=== PATIENT | female | born 1990 | race Hispanic/Latino ===

== ENCOUNTER 2017-06-30 10:19 | Emergency (ER) | payer BC, SELFPAY | END 2017-06-30 12:00 | disposition home or self-care (01) | LOC: ERS 10:19 | DX: L25.9 Unspecified contact dermatitis, unspecified cause (principal) | CPT/HCPCS: 99282 ==

== ENCOUNTER 2017-08-10 10:21 | Emergency (ER) | payer SELFPAY | END 2017-08-10 11:30 | disposition home or self-care (01) | LOC: ERS 10:21 | DX: J02.9 Acute pharyngitis, unspecified (principal) | CPT/HCPCS: 99283 ==

== ENCOUNTER 2018-03-21 16:33 | Emergency (ER) | payer SELFPAY ==
[2018-03-21] MEDS ORDERED: Acetaminophen 500 MG TAB ONE (17:03)
[2018-03-21] MEDS ORDERED: Ibuprofen 200 MG TAB ONE (19:38)
[2018-03-21 20:23] LABS: #Lymphocytes 0.9 thou/uL (1.20-3.40); #Monocytes 0.3 thou/uL (0.11-0.59); #Neutrophils 4.7 thou/uL (1.40-6.50); %Basophils 0.6 % (0.0-1.0); %Eosinophils 0.7 % (0.0-10.0); %Lymphocytes 15.6 % (21.0-51.0); %Monocytes 4.4 % (0.0-10.0); %Neutrophils 78.7 % (42.0-75.0); Hemoglobin 13.7 g/dL (12.0-16.0); Mean Corpuscular HGB CONC 34.1 g/dL (32.0-36.0); Mean Corpuscular Hemoglobin 29.4 pg (27.0-31.0); Mean Corpuscular Volume 86.3 fL (78.0-98.0); Mean Platelet Volume 7.4 fL (7.4-10.4); Platelet Count 195 thou/uL (130-400); Red Blood Cell (RBC) Count 4.66 mill/uL (4.20-5.40)
[2018-03-21 20:28] LABS: BHCG - Serum Negative (NEGATIVE); Pregs Control Background? CLEAR/WHITE (CLR/WHITE); Pregs Control Bar Appear? YES (CONTROL BAR)
[2018-03-21 20:44] LABS: ALT (SGPT) 117 U/L (8-55); AST (SGOT) 51 U/L (5-34); Albumin 3.9 g/dL (3.5-5.0); Alkaline Phosphatase 84 U/L (40-150); Anion Gap 12 mmol/L (10-20); BUN (Urea Nitrogen) 8 mg/dL (7.0-18.7); Bilirubin, Total 0.9 mg/dL (0.2-1.2); CK (CPK) 72 U/L (29-168); Calc. Creatinine Clearance 0 mL/min (70-130); Calcium 8.3 mg/dL (7.8-10.44); Carbon Dioxide 23 mmol/L (22-29); Chloride 106 mmol/L (98-107); Estimated GFR-MDRD Greater than 90; Globulin 2.7 g/dL (2.4-3.5); Glucose 93 mg/dL (70-105); Lipase 8 U/L (8-78); Potassium 3.2 mmol/L (3.5-5.1); Protein, Total 6.6 g/dL (6.0-8.3); Sodium 138 mmol/L (136-145)
[2018-03-21 21:04] LABS: Bilirubin Negative (Negative); Blood, Urine Negative (Negative); Clarity CLEAR (Clear); Glucose, Urine (Dipstick) Negative (Negative); Leukocyte Negative (Negative); Nitrite Negative (Negative); Protein, Urine (Dipstick) Negative (Neg-Trace); Specific Gravity, Urine 1.019 (1.002-1.036); Urobilinogen 0.2 mg/dL (0.2-1.0); pH, Urine 5.5 (5.0-9.0)
== END 2018-03-21 22:20 | disposition home or self-care (01) ==
LOC: ERS 16:33
DX: M79.10 Myalgia, unspecified site (principal); R50.9 Fever, unspecified
CPT/HCPCS: 36415; 80053; 81003; 82550; 83605; 83690; 84703; 85025; 87804; 96360; 96361

== ENCOUNTER 2018-10-12 17:18 | Emergency (ER) | payer SELFPAY | END 2018-10-12 17:41 | disposition home or self-care (01) | LOC: ERS 17:18 | DX: L03.317 Cellulitis of buttock (principal) | CPT/HCPCS: 99283 ==